=== PATIENT | male | born 1980 | race Caucasian/White ===

== ENCOUNTER → 2018-11-10 | Outpatient (CLI) | payer BC ==
--- NOTE | 2018-11-10 15:18 | RADIOLOGY IMAGING REPORT ---
FACILITY: [facility] PATIENT NAME: Jorge Rose : 1980 MR: [id number] V: [id number] EXAM DATE: ORDERING PHYSICIAN: SUMEET BONE TECHNOLOGIST: Location: [facility] [place] Patient: Jorge Rose : 1980 Visit/Account:[id number] Date of Sevice: 11/10/2018 Exam type: XR THORACIC SPINE AP & LAT History: Mid back pain, low back pain Comparison: None. Findings: AP and lateral views of the thoracic spine demonstrate a minimal dextroconvex scoliosis.. There is n o evidence of acute fractures or subluxations IMPRESSION: 1. No evidence of acute fracture or subluxation in the thoracic spine. If patient's pain continues MR is recommended Report Dictated By: Federica Negrete MD at 11/10/2018 3:11 PM Report E-Signed By: Federica Negrete MD at 11/10/2018 3:14 PM WSN:[email or web address]
--- NOTE | 2018-11-10 15:19 | RADIOLOGY IMAGING REPORT ---
FACILITY: [facility] PATIENT NAME: Jorge Rose : 1980 MR: [id number] V: [id number] EXAM DATE: ORDERING PHYSICIAN: SUMEET BONE TECHNOLOGIST: Location: [facility] Patient: Jorge Rose : 1980 Visit/Account:[id number] Date of Sevice: 11/10/2018 Exam type: L-SPINE 2 OR 3 VIEW History: Low back pain Comparison: None. Findings: AP and lateral views of the lumbar spine were submitted There five nonrib-bearing lumbar-type vertebral bodies present with hypoplastic ribs at T12. There i s no evidence of acute fractures or subluxations. The disc spaces appear relatively well-preserved. IMPRESSION: 1. No evidence of acute fractures or subluxations in the lumbar spine. If patient's pain continues MR may be helpful Report Dictated By: Federica Negrete MD at 11/10/2018 3:14 PM Report E-Signed By: Federica Negrete MD at 11/10/2018 3:15 PM WSN:[email or web address]
--- NOTE | 2018-11-10 15:25 | RADIOLOGY IMAGING REPORT ---
FACILITY: [facility] [place] PATIENT NAME: Jorge Rose : 1980 MR: [id number] V: [id number] EXAM DATE: ORDERING PHYSICIAN: SUMEET BONE TECHNOLOGIST: Location: [facility] Patient: Jorge Rose : 1980 Visit/Account:[id number] Date of Sevice: 11/10/2018 Exam type: RIBS RIGHT History: Fractured ribs two weeks previously. Pain in posterior right ribs Comparison: October 30, 2018. Findings: PA view the chest and two views of the right ribs were submitted. There are hypoplastic ribs at T12 Again noted are nondisplaced fractures through the anterior aspect of T8 and T9. Period there also appears to be a nonspecific fracture to the anterior aspect of the right sixth rib there is no eviden ce of a pneumothorax pleural effusion or pulmonary consolidation. The cardiac silhouette appears nor mal IMPRESSION: 1. Right-sided rib fractures as described Report Dictated By: Federica Negrete MD at 11/10/2018 3:15 PM Report E-Signed By: Federica Negrete MD at 11/10/2018 3:20 PM WSN:[email or web address]
== END ==
LOC: RAD 14:07
PROVIDERS: ATTEND Nurse Practitioner Family
DX: S22.41XA Multiple fractures of ribs, right side, initial encounter for closed fracture (principal); M54.5 Low back pain; M54.9 Dorsalgia, unspecified
CPT/HCPCS: 71100; 72070; 72100